=== PATIENT | female | born 1950 | race Caucasian/White ===

== ENCOUNTER → 2019-06-23 | Outpatient (CLI) | payer OTHER ==
[~2019-06-23] MED LIST: ASPI81TA50 PO; ATEN25TA PO; CLIN150C14 PO; CYCL5TAB PO; FENT1PAT17 TP; FLUO20CA8 PO; IOHEXOL 300 MG/ML 50 ML VIAL. IT ONE; LIDOCAINE 1% Multi-Dose 20 ML VIAL. IM ONE; LISI10TA2 PO; LORA0.5T PO; OXYC1TAB15 PO; POTA10TA12 PO; PRED2.5T PO; SIMV10TA3 PO; TRAZ-86 PO; TRIA15OI TP
--- NOTE | 2019-06-23 13:00 | KCIC ---
Cervical spine CT without contrast History: Right cervical radiculopathy, chronic neck pain Technique: Noncontrast CT imaging was performed of the cervical spine after injection for cervical myelogram. Multiplanar images are reviewed. Exposure: One or more of the following individualized dose reduction techniques were utilized for this examination: 1. Automated exposure control 2. Adjustment of the mA and/or kV according to patient size 3. Use of iterative reconstruction technique. Comparison: Outside facility noncontrast cervical spine exam January 28, 2019 Findings: On initial scanning, there was contrast in the cervical spinal canal although patient was repositioned and delayed scanning was performed. Cervical vertebral body stature is maintained. AP alignment is within normal limits. There is fairly advanced degenerative disc disease C6-7, [id number] degenerative disc disease C4-5 at which there is mild interbody calcification. Cervical cord caliber is within normal limits. Atlantoaxial distance is within normal limits, associated degenerative change. There is adequate alignment of the lateral masses C1 relative to C2. Occipital condylar- C1 articulation is maintained. There is mild levoscoliosis centered upon the mid cervical spine. There is mild atherosclerotic calcification of the carotid arteries in the neck. C2-C3: There is moderate left facet hypertrophic change, minimally on the right. Spinal canal and neural foramina are adequate. C3-C4: There is minimal disc osteophyte complex greater in the right lateral recess. Central canal is adequate about 11 mm, minimal right lateral recess stenosis. There is fairly severe, right greater than left facet degenerative change. There is mild uncovertebral degenerative change greater on the right. There is fairly severe narrowing of the right neural foramen, left neural foramen adequate. C4-C5: There is minimal posterior disc osteophyte complex, central canal adequate about 11 mm, minimal narrowing of the far lateral recesses bilaterally. There is severe left facet hypertrophic change, to a lesser degree on the right. There is uncovertebral degenerative change greater on the left. There is fairly severe left and moderate to severe right neural foramina compromise. C5-6: Spinal canal is adequate. There is severe right facet hypertrophic change, minimally on the left. There is uncovertebral degenerative change greater on the right. There is fairly severe narrowing of the right neural foramen, left neural foramen adequate. C6-7: There is minimal disc osteophyte complex. Central canal is minimally narrowed to about 9 to 10 mm as measured on sagittal images. There is bilateral facet hypertrophic change, also left uncovertebral degenerative change. There is severe narrowing of the left neural foramen, mild proximal narrowing on the right. C7-T1: Spinal canal is adequate. There is severe right uncovertebral degenerative change, minimally on the left. There is bilateral facet degenerative change greater on the left. There is fairly severe narrowing of the right neural foramen due to uncovertebral degenerative change, very mild narrowing of the left neural foramen. Impression: 1. There is fairly advanced degenerative disc disease C6-7 and to lesser degree at C4-5, mild spondylosis. 2. There is mild spinal stenosis C6-7, also mild narrowing of the lateral recesses bilaterally at C4-5 and on the right at C3-C4. 3. There is multilevel facet and uncovertebral degenerative change contributing to multilevel cervical neural foramina compromise. There is more significant narrowing on the right at C3-C4, C5-6, C7-T1, bilaterally at C4-5, and on the left at C6-7. 4. There is mild levoscoliosis of cervical spine. Electronically signed by: Eric Jack MD (06/23/2019 12:57 PM) [email or web address]
--- NOTE | 2019-06-23 13:01 | KCIC ---
Cervical myelogram History: Right cervical radiculopathy Technique: Patient was informed of the risks to include pain, infection, bleeding, seizures, allergic reaction, nerve root injury. All questions were answered. Patient signed a written consent form for a cervical myelogram. The patient was placed in a prone oblique position. The patient was prepped and draped in the usual sterile fashion. 1% lidocaine was utilized for local anesthesia at the anticipated site of puncture of the left L3-4 interlaminar space. A 19-gauge guiding needle was advanced into the soft tissues. Through the guiding needle, a 25 gauge Jose Luis needle was advanced until there was return of cerebral spinal fluid. Approximately 10 cc Isovue-300 were then injected during fluoroscopic visualization. The needles were removed. Bandage was applied. Patient was repositioned so as to allow for the flow of contrast into the cervical spine. However contrast column was poorly visualized by fluoroscopy after various maneuvers, most of the contrast pooling in the lumbar spine presumably due to stenosis near the L2-3 level. The patient was then transferred to the CT department for CT examination of the cervical spine. There were no immediate complications. Fluoroscopy time: 2 minutes 12 seconds, 7 images Findings: There is multilevel cervical facet degenerative change. Contrast column was poorly visualized by fluoroscopy as most of the contrast in the lumbar spinal canal presumably due to stenosis near the L2-3 level. Note is made of L4-5 interbody graft. Impression: 1. Contrast column was poorly visualized in the cervical spine by fluoroscopy. There is multilevel cervical facet degenerative change. Electronically signed by: Eric Jack MD (06/23/2019 12:58 PM) [facility]
== END | disposition home or self-care (01) ==
LOC: KCIC 10:14 → EDBD 11:00
PROVIDERS: ATTEND Neurological Surgery
DX: M50.121 Cervical disc disorder at C4-C5 level with radiculopathy (principal); M47.22 Other spondylosis with radiculopathy, cervical region; M48.02 Spinal stenosis, cervical region; M25.78 Osteophyte, vertebrae; M89.38 Hypertrophy of bone, other site; I65.23 Occlusion and stenosis of bilateral carotid arteries; G89.29 Other chronic pain
CPT/HCPCS: 72126; 72240; Q9967

== ENCOUNTER → 2019-10-27 | Outpatient (CLI) | payer OTHER ==
[2019-08-01 08:24] VITALS: BP 149/83
[~2019-10-27] MED LIST changes: +CHOL10003 PO; +DICL100G18 TP; +DICY10CA3 PO; +DOCU-109 PO; +FENT1PAT19 TD; +FLUO20CA19 PO; -FLUO20CA8 PO; -IOHEXOL 300 MG/ML 50 ML VIAL. IT ONE; +LACT1CAP6 PO; -LIDOCAINE 1% Multi-Dose 20 ML VIAL. IM ONE; +OMEP-229 PO; +OXYC5CAP PO; +SIMV10TA15 PO; -SIMV10TA3 PO
--- NOTE | 2019-10-27 13:20 | KCIC ---
EXAM: Cervical spine, 3 views. HISTORY: Fusion. COMPARISON: 06/23/2019 FINDINGS: 3 views of the cervical spine are obtained. There is instrumented anterior spinal fusion and disc space fusion device placement at C4-C6. There is degenerative endplate remodeling and slight disc space narrowing at C6-C7 and C7-T1. There is multilevel facet arthropathy. There is partial visualization of cardiac pacemaker leads. IMPRESSION: 1. Instrumented fusion at C4-C6. 2. Degenerative change primarily through C6-T1. Electronically signed by: Gricelda Wilson MD (10/27/2019 1:17 PM) [place] [id number]
== END | disposition home or self-care (01) ==
LOC: KCIC 11:30
PROVIDERS: ATTEND Neurological Surgery
DX: M48.02 Spinal stenosis, cervical region (principal); M12.88 Other specific arthropathies, not elsewhere classified, other specified site; Z95.0 Presence of cardiac pacemaker; M48.03 Spinal stenosis, cervicothoracic region
CPT/HCPCS: 72040